=== PATIENT | male | born 1955 | race Caucasian/White ===

== ENCOUNTER 2024-03-10 08:42 | Emergency (ER) | payer OTHER, SELFPAY ==
[2024-03-10 08:44] VITALS: BP 190/116; PULSE 63; RESP 17; TEMP 36.5; O2SAT 97; BMI 26.4
--- NOTE | 2024-03-10 08:47 | XRR_ITS ---
PROCEDURE INFORMATION: Exam: XR Right Ribs with PA Chest Exam date and time: 03/10/2024 9:05 AM Age: 68 years old Clinical indication: Injury or trauma; Fall; Rib area; Blunt trauma (contusions or hematomas) TECHNIQUE: Imaging protocol: Radiologic exam of the right ribs with PA chest. Views: 3 views COMPARISON: No relevant prior studies available. FINDINGS: Lungs: Unremarkable. No consolidation. Pleural spaces: Unremarkable. No pleural effusion. No pneumothorax. Heart/Mediastinum: Unremarkable. No cardiomegaly. Bones/joints: Unremarkable. XR/XR ribs RT mn 3V w CXR1V [id number] IMPRESSION: No acute findings.
--- NOTE | 2024-03-10 08:47 | CTR_ITS ---
PROCEDURE INFORMATION: Exam: CT Head Without Contrast Exam date and time: 03/10/2024 9:11 AM Age: 68 years old Clinical indication: Injury or trauma; Fall; Blunt trauma (contusions or hematomas); With loss of consciousness TECHNIQUE: Imaging protocol: Computed tomography of the head without contrast. Radiation optimization: All CT scans at this facility use at least one of these dose optimization techniques: automated exposure control; mA and/or kV adjustment per patient size (includes targeted exams where dose is matched to clinical indication); or iterative reconstruction. COMPARISON: CT cervical spin wo con* [id number] 03/10/2024 9:11 AM RADIATION DOSE METRICS: Total DLP (mGy-cm): 1114.7 FINDINGS: Brain: Subcentimeter hypodensity at the right frontal deep subcortical white matter likely represents age-appropriate mild chronic small vessel ischemic changes, but other etiologies such as demyelinating disease cannot be excluded. Brain parenchyma and ventricles are otherwise unremarkable, with age-appropriate very mild global cortical atrophy with associated ventricular prominence. No hemorrhage, infarct, mass, mass effect or extra-axial fluid collection seen. Cerebral ventricles: Very mild age-appropriate ventricular prominence Paranasal sinuses: Visualized sinuses are unremarkable. No fluid levels. Mastoid air cells: Visualized mastoid air cells are well aerated. Nasal cavity: Bilateral omi bullosa noted. Rightward nasal septum deviation. Bones: Unremarkable. No acute fracture. Soft tissues: Unremarkable. Vasculature: Carotid and vertebral artery atheromatous calcifications CT/CT head wo con* [id number] IMPRESSION: 1. No acute intracranial process. 2. Chronic/senescent findings as above
--- NOTE | 2024-03-10 08:47 | XRR_ITS ---
PROCEDURE INFORMATION: Exam: XR Right Hand Exam date and time: 03/10/2024 9:01 AM Age: 68 years old Clinical indication: Injury or trauma; Fall; Blunt trauma (contusions or hematomas); Hand; Right TECHNIQUE: Imaging protocol: Radiologic exam of the right hand. Views: 3 or more views. COMPARISON: No relevant prior studies available. FINDINGS: Bones/joints: Negative for acute bone abnormality. Narrowing of the interphalangeal articulations of multiple digits consistent with moderate osteoarthritis Soft tissues: Normal. XR/XR hand RT min 3V* [id number] IMPRESSION: 1. No acute findings. 2. Moderate osteoarthritis
--- NOTE | 2024-03-10 08:47 | CTR_ITS ---
PROCEDURE INFORMATION: Exam: CT Cervical Spine Without Contrast Exam date and time: 03/10/2024 9:11 AM Age: 68 years old Clinical indication: Injury or trauma; Fall; Blunt trauma TECHNIQUE: Imaging protocol: Computed tomography of the cervical spine without contrast. Radiation optimization: All CT scans at this facility use at least one of these dose optimization techniques: automated exposure control; mA and/or kV adjustment per patient size (includes targeted exams where dose is matched to clinical indication); or iterative reconstruction. COMPARISON: CT head wo con* [id number] 03/10/2024 9:11 AM RADIATION DOSE METRICS: Total DLP (mGy-cm): 537.4 FINDINGS: Bones: Straightening of normal cervical lordosis suggestive of neck muscle spasm. At C6-C7 there is vmoipopl-[id number] loss of disc height with prominent endplate hypertrophy and Modic 3 sclerotic endplate changes. Old, subtle compression deformities of the C4, C5 and C6 bodies. Up to moderate diffuse facet arthropathy. At C6-C7 there is minimal grade 1 listhesis, and estimated mild indentation of the ventral thecal sac with severe right/mild left foraminal stenosis, secondary to moderate endplate and facet hypertrophy. Large anterior bridging osteophytes at C5-C6 and C6-C7. 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 Prominent atlantodental DJD. Prevertebral and retropharyngeal spaces: Normal prevertebral soft tissues. Lungs: Lung apices are normal. Thyroid: 6 mm left thyroid lobe hypodensity; consider nonemergent thyroid ultrasound for further characterization. Soft tissues: See Bones finding. CT/CT cervical spin wo con* [id number] IMPRESSION: 1. No acute findings 2. Cervical spondylosis as described 3. Left thyroid lobe nodule as above COMMENTS: Consistent with the [employer]'s Incidental Findings Committee white paper (J Am Toña Radiol 2015): In patients aged 35 years and older with an incidental thyroid nodule equal to or greater than 1.[address], MRI or extrathyroidal US, further evaluation with dedicated thyroid US is recommended for patients with normal life expectancy and without comorbidities. For smaller nodules without suspicious features, no further evaluation or follow up is recommended.
--- NOTE | 2024-03-10 08:56 | ED_ITS ---
HPI - Extremity Problem General: Chief complaint: Extremity Injury, Upper Stated complaint: fall/ Right hand injury Time Seen by Provider: 03/10/24 08:44 Source: patient Mode of arrival: ambulatory Limitations: no limitations History of Present Illness: 68-year-old male states that he had fell 2 days ago. States that he had fell on his right side he did hit his head had loss consciousness complains headache right-sided neck pain right chest pain also some right hand pain he does have a skin tears to the right hand and right elbow is not seen at that time states he is having some increasing pain and wanted to be checked out. Denies any headache currently. Associated symptoms: Reports chest pain; Deny fever(s) or rash Review of Systems Const: Denies: fever(s), chills, body aches or change in appetite ENMT: Denies: throat pain or dental pain Card: Reports: chest pain Resp: Denies: dyspnea GI: Denies: abdominal pain, nausea, vomiting or diarrhea Musc: Reports: neck pain and extremity pain; Denies: back pain Skin/Breast: Denies: rash Neuro: Reports: headache(s) Physical Exam Const: COMMON NORMALS: patient oriented x3 HENMT: COMMON NORMALS: normocephalic HEAD & SCALP: normocephalic OTHER: Abrasions to right forehead Eye: COMMON NORMALS: Equal, round and reactive pupils present and EOMs intact bilaterally PUPIL: Yes Equal, round and reactive pupils present Neck/C-Spine: COMMON NORMALS: full ROM Chest: COMMONS NORMALS: normal inspection of the chest OTHER: Tenderness to right chest Resp: COMMON NORMALS: normal respiratory effort, No retractions, No use of accessory muscles and clear to auscultation bilaterally AUSCULTATION: clear to auscultation bilaterally Cardio: COMMON NORMALS: regular rate, regular rhythm and No murmurs present (Cardio) RATE: regular rate RHYTHM: regular rhythm Extremity: COMMON NORMALS: full ROM OTHER: Abrasions noted to right hand along with right elbow no signs of infection Neuro: COMMON NORMALS: patient oriented x3, moves all extremities and no focal motor deficits Psych: COMMON NORMALS: mental status grossly normal, Normal thought process present and cooperative THOUGHT PROCESS: Normal thought process present Skin: COMMON NORMALS: no rashes or lesions noted GENERAL SKIN EXAM: no rashes or lesions noted Course Vital Signs: Vital signs: Vital Signs Temperature 97.7 F 03/10/24 08:44 Pulse Rate 45 L 03/10/24 10:37 Respiratory Rate 17 03/10/24 10:37 Blood Pressure 148/82 03/10/24 10:37 Pulse Oximetry 96 03/10/24 10:37 Oxygen Delivery Me thod Room Air 03/10/24 09:30 MDM - Extremity (Nontraumatic) Medical Decision Making Patient presents with head injury along with right rib pain and right hand abrasion after a fall imaging here is all normal no signs of any fractures. Discussed some very mild erythema around his right hand mainly skin tears they are 2 days old and unable to suture any he is to keep the area clean we will start him on antibiotics did give a dose of antibiotics here. He is stable for discharge return if worsening Medical Records I reviewed the patient's medical records. Lab Data Radiology Impressions Cervical Spine CT 03/10/24 08:47 IMPRESSION: 1. No acute findings 2. Cervical spondylosis as described 3. Left thyroid lobe nodule as above COMMENTS: Consistent with the [employer]'s Incidental Findings Committee white paper (J Am Toña Radiol 2015): In patients aged 35 years and older with an incidental thyroid nodule equal to or greater than 1.[address], MRI or extrathyroidal US, further evaluation with dedicated thyroid US is recommended for patients with normal life expectancy and without comorbidities. For smaller nodules without suspicious features, no further evaluation or follow up is recommended. Hand X-Ray 03/10/24 08:47 IMPRESSION: 1. No acute findings. 2. Moderate osteoarthritis Head CT 03/10/24 08:47 IMPRESSION: 1. No acute intracranial process. 2. Chronic/senescent findings as above Ribs X-Ray 03/10/24 08:47 IMPRESSION: No acute findings. All radiology interpretation(s) finalized by discharge Discharge Plan Discharge Patient Disposition: Home Clinical Impression: Fall Qualifiers: Encounter type: initial encounter Qualified Code(s): W19.XXXA - Unspecified fall, initial encounter Closed head injury Qualifiers: Encounter type: initial encounter Qualified Code(s): S09.90XA - Unspecified injury of head, initial encounter Abrasion of hand, right Qualifiers: Encounter type: initial encounter Qualified Code(s): S60.511A - Abrasion of right hand, initial encounter Condition: Stable Prescriptions: New cephalexin 500 mg capsule 500 mg PO TID 7 Days Qty: 21 0RF Discharge Orders: Discharge ED (Routine); Ordered 03/10/24 Ordered By: Aleksandra Ornelas Discharge Diet: Advance as tolerated Discharge Activity: Resume usual activity Patient Instructions: Head Injury (ED), Abrasion (ED) Coding Level of Care Code ED Billing Machine Operator for Kade Lazcano
[2024-03-10] MEDS: cefTRIAXone 1,000 MG in water for injection-sterile 2.1 ML 2.10000000000000009 MG IM (08:58)
[2024-03-10] MEDS: HYDROcodone-acetaminophen 5-325 mg Tablet 1 TAB PO (08:58)
[2024-03-10] MEDS: tetanus-dipt-pertussis 0.5 mL SDV IM (09:22)
[2024-03-10 09:30] VITALS: BP 156/85; PULSE 50; O2SAT 96
[2024-03-10 10:37] VITALS: BP 148/82; PULSE 45; RESP 17; O2SAT 96
== END 2024-03-10 10:39 | disposition home or self-care (01) ==
PROVIDERS: Emergency Provider Emergency Medicine
DX: S60.511A Abrasion of right hand, initial encounter (principal); S00.81XA Abrasion of other part of head, initial encounter; S50.311A Abrasion of right elbow, initial encounter; W19.XXXA Unspecified fall, initial encounter; Z23 Encounter for immunization
CPT/HCPCS: 70450; 71101; 72125; 73130; 90471; 90715; 96372; 99284; J0696

== ENCOUNTER → 2024-07-23 07:48 | Outpatient (BNVA) | payer OTHER, SELFPAY | PROVIDERS: Referring Provider Family Medicine; Visit Provider Nurse Practitioner Family | DX: D48.5 Neoplasm of uncertain behavior of skin (principal); L57.0 Actinic keratosis; L21.8 Other seborrheic dermatitis; L57.8 Other skin changes due to chronic exposure to nonionizing radiation; D22.39 Melanocytic nevi of other parts of face | CPT/HCPCS: 17004; 99204 ==

== ENCOUNTER 2024-09-20 10:52 | Outpatient (CLI) | payer OTHER, SELFPAY ==
[2024-09-20 13:24] LABS: Estradiol 24.5 pg/mL (7.63-42.6)
[2024-09-21 05:25] LABS: Sex Hormone Binding Globulin 38 nmol/L (22-77); Testosterone Total Males IA 340 ng/dL (250-827)
[2024-09-21 06:20] LABS: Albumin 4.5 g/dL (3.6-5.1); Testosterone Bioavailable 79.9 ng/dL (110.0-575.0); Testosterone Free 38.8 pg/mL (46.0-224.0)
== END 2024-09-20 10:53 | disposition home or self-care (01) ==
LOC: LAB 10:54
PROVIDERS: Visit Provider Nurse Practitioner Family
DX: N52.9 Male erectile dysfunction, unspecified (principal)
CPT/HCPCS: 82040; 82670; 84270; 84403

== ENCOUNTER → 2024-10-08 08:57 | Outpatient (BNVA) | payer OTHER, SELFPAY | PROVIDERS: Visit Provider Nurse Practitioner Family | DX: C44.619 Basal cell carcinoma of skin of left upper limb, including shoulder (principal); C44.319 Basal cell carcinoma of skin of other parts of face; C44.219 Basal cell carcinoma of skin of left ear and external auricular canal; L21.8 Other seborrheic dermatitis; D48.5 Neoplasm of uncertain behavior of skin; L57.0 Actinic keratosis | CPT/HCPCS: 11102; 17000; 99213 ==

== ENCOUNTER → 2024-11-13 07:48 | Outpatient (BNVA) | payer OTHER, SELFPAY | PROVIDERS: Visit Provider Dermatology | DX: C44.319 Basal cell carcinoma of skin of other parts of face (principal); C44.219 Basal cell carcinoma of skin of left ear and external auricular canal; D23.22 Other benign neoplasm of skin of left ear and external auricular canal; C44.619 Basal cell carcinoma of skin of left upper limb, including shoulder; L72.0 Epidermal cyst; L82.1 Other seborrheic keratosis; C44.629 Squamous cell carcinoma of skin of left upper limb, including shoulder; C44.41 Basal cell carcinoma of skin of scalp and neck; L57.0 Actinic keratosis | CPT/HCPCS: 11603; 13121; 17000; 17272; 99214 ==

== ENCOUNTER 2025-01-07 10:13 | Outpatient (CLI) | payer OTHER, SELFPAY ==
[2025-01-07 10:58] LABS: Basophils # 0.1 10^3/uL (0.0-0.1); Basophils % 0.8 %; Eosinophils # 0.2 10^3/uL (0.0-0.8); Eosinophils % 3.2 %; Hematocrit 42.4 % (37-53); Lymphocytes # 1.7 10^3/uL (0.8-4.8); Lymphocytes % 27.4 %; Mean Corpuscular HGB Conc 32.5 g/dL (30-55); Mean Corpuscular Hemoglobin 31.5 pg (27-33); Mean Corpuscular Volume 96.8 fl (82-101); Mean Platelet Volume 11.6 fL (7.4-10.4); Monocytes # 0.7 10^3/uL (0.2-0.9); Monocytes % 10.3 %; Neutrophils # 3.68 10^3/uL (1.8-7.7); Nucleated Red Blood Cells % 0 %; Platelet Count 145 10^3/cmm (157-399); Red Blood Count 4.38 10^6/uL (3.85-5.65); Red Cell Distribution Width 12.3 % (12.1-15.1); White Blood Count 6.34 10^3/uL (3.29-11.43)
[2025-01-07 11:25] LABS: Testosterone Total 671.5 ng/dL (193-740)
[2025-01-07 11:56] LABS: Estradiol 30.1 pg/mL (7.63-42.6)
== END 2025-01-07 10:14 | disposition home or self-care (01) ==
PROVIDERS: Visit Provider Nurse Practitioner Family
DX: E29.1 Testicular hypofunction (principal); N40.1 Benign prostatic hyperplasia with lower urinary tract symptoms
CPT/HCPCS: 36415; 82670; 84153; 84403; 85025

== ENCOUNTER 2025-01-20 08:53 | Outpatient (CLI) | payer OTHER, SELFPAY | END 2025-01-20 08:54 | disposition home or self-care (01) | LOC: LAB 08:55 | PROVIDERS: Visit Provider Nurse Practitioner Family | DX: R97.20 Elevated prostate specific antigen [PSA] (principal) | CPT/HCPCS: 36415; 84153 ==

== ENCOUNTER → 2025-02-12 10:02 | Outpatient (BNVA) | payer OTHER, SELFPAY | PROVIDERS: Visit Provider Nurse Practitioner Family | DX: D22.5 Melanocytic nevi of trunk (principal); L81.4 Other melanin hyperpigmentation; L72.0 Epidermal cyst; Z08 Encounter for follow-up examination after completed treatment for malignant neoplasm; Z85.828 Personal history of other malignant neoplasm of skin; L82.0 Inflamed seborrheic keratosis; L29.89 Other pruritus; R20.9 Unspecified disturbances of skin sensation; R20.8 Other disturbances of skin sensation; Z78.9 Other specified health status; R58 Hemorrhage, not elsewhere classified; L53.8 Other specified erythematous conditions; L57.0 Actinic keratosis; D18.01 Hemangioma of skin and subcutaneous tissue | CPT/HCPCS: 17000; 17110; 99213 ==

== ENCOUNTER 2025-05-01 08:42 | Outpatient (CLI) | payer OTHER, SELFPAY ==
[2025-05-01 09:06] LABS: Hematocrit 44.7 % (37-53); Hemoglobin 14.30 g/dL (11.27-16.99); Mean Corpuscular HGB Conc 32.0 g/dL (30-55); Mean Corpuscular Hemoglobin 30.8 pg (27-33); Mean Corpuscular Volume 96.1 fl (82-101); Nucleated Red Blood Cells % 0 %; Platelet Count 152 10^3/cmm (157-399); Red Blood Count 4.65 10^6/uL (3.85-5.65); White Blood Count 6.42 10^3/uL (3.29-11.43)
[2025-05-01 09:32] LABS: Prostate Specific Antigen 3.880 ng/mL (0-4)
== END 2025-05-01 08:43 | disposition home or self-care (01) ==
LOC: LAB 08:44
PROVIDERS: Visit Provider Nurse Practitioner Family
DX: R97.20 Elevated prostate specific antigen [PSA] (principal); E29.1 Testicular hypofunction
CPT/HCPCS: 36415; 82670; 84153; 84403; 85025

== ENCOUNTER 2025-06-05 07:11 | Outpatient (CLI) | payer OTHER, SELFPAY ==
--- NOTE | 2025-06-05 07:19 | USCV_ITS ---
Daniel Ragland Age: 70 Gender: M : 1955 Exam Date: 06/05/2025 07:36 Ordering Phys: Gina Nazario APRN Technologist: Exam Location: [facility] [place] Indication: screening HISTORY: Diameter (cm) AP x Transverse x Length Velocity (cm/s) Waveform Prox Aorta: 1.60 x 1.70 x 53.60 Triphasic Mid Aorta: 2.00 x 2.30 x 81.00 Triphasic Distal Aorta: 2.50 x 2.50 x 87.00 Triphasic Right Iliac Prox: 1.20 x 1.00 x 66.00 Triphasic Left Iliac Prox: 0.91 x 1.10 x 85.80 Triphasic Stent Prox Landing x x Aneurysmal Sac Max x x Lt Lat Sac Dim Rt Lat Sac Dim Stent Dist Landing x x Right Iliac Stent x x Left Iliac Stent x x Right Renal Art Left Renal Art FINDINGS: Comparison: none available. No evidence of abdominal aortic or bilateral iliac aneurysm. Ectatic abdominal aorta with evidence of atherosclerotic plaque noted. CONCLUSIONS No evidence of abdominal aortic or bilateral iliac aneurysm. Dr. Brandi Copeland DO (Electronically Signed) Final Date: 05 June 2025 10:16 S
== END 2025-06-05 07:12 | disposition home or self-care (01) ==
LOC: RAD 07:12
PROVIDERS: PCP Nurse Practitioner Family; Visit Provider Nurse Practitioner Family
DX: R93.5 Abnormal findings on diagnostic imaging of other abdominal regions, including retroperitoneum (principal); I70.0 Atherosclerosis of aorta
CPT/HCPCS: 76706

== ENCOUNTER 2025-07-15 07:35 | Outpatient (CLI) | payer OTHER, SELFPAY ==
--- NOTE | 2025-07-15 07:39 | US_ITS ---
WS: [id number] THYROID ULTRASOUND HISTORY: NODULE SEEN ON CT 2023 COMPARISON: 03/10/2024 Right lobe: 1.6 cm x 1.7 cm x 4.1 cm (w x ap x l). Volume: 5.3 cm3. Normal size and echotexture. No significant are dominant nodules are present. Left lobe: 1.5 cm x 1.2 cm x 4.2 cm (w x ap x l). Volume: 3.6 cm3. Normal sized gland. Very hypervascular isoechoic nodule with a 2 few tiny echogenic foci in the superficial superior LEFT thyroid. This nodule measures 0.4 x 0.5 x 0.5 cm. Isthmus: 0.3 cm. US/US thyroid [id number] IMPRESSION: TI-RADS 4; as per TI-RADS criteria no follow-up is necessary. Follow-up is [place] mmended for nodules greater than or equal to 1 cm. This nodule maximum diameter is 0.5 cm.
== END 2025-07-15 07:36 | disposition home or self-care (01) ==
LOC: RAD 07:36
PROVIDERS: PCP Nurse Practitioner Family; Visit Provider Nurse Practitioner Family
DX: Z01.89 Encounter for other specified special examinations (principal); E04.1 Nontoxic single thyroid nodule
CPT/HCPCS: 76536

== ENCOUNTER → 2025-07-31 08:54 | Outpatient (BNVA) | payer OTHER, SELFPAY | PROVIDERS: PCP Nurse Practitioner Family; Visit Provider Nurse Practitioner Family | DX: L81.4 Other melanin hyperpigmentation (principal); D18.01 Hemangioma of skin and subcutaneous tissue; Z08 Encounter for follow-up examination after completed treatment for malignant neoplasm; Z85.828 Personal history of other malignant neoplasm of skin; D48.5 Neoplasm of uncertain behavior of skin; L57.0 Actinic keratosis | CPT/HCPCS: 11102; 17000; 99213 ==

== ENCOUNTER → 2025-08-20 10:29 | Outpatient (BNVA) | payer OTHER, SELFPAY | PROVIDERS: PCP Nurse Practitioner Family; Visit Provider Dermatology | DX: L81.4 Other melanin hyperpigmentation (principal); L57.8 Other skin changes due to chronic exposure to nonionizing radiation; Z08 Encounter for follow-up examination after completed treatment for malignant neoplasm; Z85.828 Personal history of other malignant neoplasm of skin; C44.622 Squamous cell carcinoma of skin of right upper limb, including shoulder; D48.5 Neoplasm of uncertain behavior of skin; L57.0 Actinic keratosis | CPT/HCPCS: 11102; 17000; 17262; 99213 ==

== ENCOUNTER 2025-09-17 09:45 | Outpatient (CLI) | payer OTHER, SELFPAY ==
[2025-09-17 11:04] LABS: Hematocrit 46.2 % (37-53); Hemoglobin 14.80 g/dL (11.27-16.99); Mean Corpuscular HGB Conc 32.0 g/dL (30-55); Mean Corpuscular Hemoglobin 30.3 pg (27-33); Mean Corpuscular Volume 94.7 fl (82-101); Nucleated Red Blood Cells % 0 %; Platelet Count 168 10^3/cmm (157-399); Red Blood Count 4.88 10^6/uL (3.85-5.65); White Blood Count 6.97 10^3/uL (3.29-11.43)
== END 2025-09-17 09:46 | disposition home or self-care (01) ==
PROVIDERS: PCP Nurse Practitioner Family; Visit Provider Nurse Practitioner Family
DX: Z12.5 Encounter for screening for malignant neoplasm of prostate (principal); R97.20 Elevated prostate specific antigen [PSA]; E29.1 Testicular hypofunction
CPT/HCPCS: 36415; 82670; 84402; 84403; 85025; G0103